=== PATIENT | female | born 1945 | race Caucasian/White ===

== ENCOUNTER → 2017-06-18 | Outpatient (CLI) | payer MEDICARE, OTHER | LOC: RAD 09:31 | PROVIDERS: ATTEND Internal Medicine | DX: Z12.31 Encounter for screening mammogram for malignant neoplasm of breast (principal) | CPT/HCPCS: 77067 ==

== ENCOUNTER 2017-07-09 05:33 | Outpatient (CLI) | payer MEDICARE, OTHER ==
[~2017-07-09] VITALS: Ht 160 cm; Wt 136.1 kg
[2017-07-09] MEDS ORDERED: LYSI100014 PO (12:04)
[2017-07-09] MEDS ORDERED: ASPI-586 PO (12:04)
[2017-07-09] MEDS ORDERED: ATEN100T PO (12:04)
[2017-07-09] MEDS ORDERED: HYDR25TA4 PO (12:04)
[2017-07-09] MEDS ORDERED: CYAN250014 PO (12:04)
== END 2017-07-09 12:11 ==
LOC: PREOP 05:33
PROVIDERS: ATTEND Internal Medicine
DX: Z01.818 Encounter for other preprocedural examination (principal); Z12.11 Encounter for screening for malignant neoplasm of colon; Z86.010 Personal history of colon polyps

== ENCOUNTER 2017-07-16 07:50 | Day surgery (SDC) | payer MEDICARE, OTHER ==
--- NOTE | 2017-07-14 08:07 | HISTORY AND PHYSICAL ---
DICTATING PHYSICIAN: Dr. Green DATE OF ADMISSION: 07/16/2017 Mrs. Green is a 71-year-old white female referred by Dr. Marshall for a screening colonoscopy. She states that she last underwent colonoscopy [address] Espinal and had one polyp at that time. She is deemed to be of higher than average risk as her mother was diagnosed with colon cancer at the age of 68. She succumbed to the natural causes at the age of 96. She denies any bright red blood per rectum or melena. She has had no abdominal pain or bowel habit change. PAST MEDICAL HISTORY: Significant for hypertension with no history of coronary artery disease. MEDICATIONS: On admission prescription include: 1. Atenolol 100 mg daily. 2. Hydrochlorothiazide 25 mg daily. 3. Baby aspirin daily. 4. She takes probiotic daily. 5. 1000 mcg of B12. 6. 1000 mg of D3. 7. 1000 mg of l-lysine. 8. She takes a turmeric based medication for knee pain. She has a history of obesity. Patellofemoral arthritis. PAST SURGICAL HISTORY: 1. She had tonsillectomy and adenoidectomy age of 7. 2. She had parathyroidectomy a little over 5 years ago. 3. Past history of meniscal tear repair in the distant past. 4. Distant history of cholecystectomy. SOCIAL HISTORY: She is retired with no past smoking history and rare alcohol intake. PHYSICAL EXAMINATION: Reveals a pleasant white female, who weighs 305 pounds. Her blood pressure initially 160/80 but at the end of the interview was down to 148/84. HEENT EXAMINATION: Unremarkable. Pharynx reveals no evidence for erythema or exudate. She is a Mallampati class II oropharyngeal configuration. NECK: Revealed no JVD, adenopathy or bruits. CHEST: Clear. CV: Reveals regular rate and rhythm without murmur, S3 or S4. ABDOMEN: Obese, soft, nontender without mass, organomegaly or tenderness. EXTREMITIES: Reveal no cyanosis, clubbing, or edema. ASSESSMENT: The patient was set-up for surveillance colonoscopy on 07/16. Prep instructions were given and questions were answered. With review of her electronic medical record and evaluation, 35 minutes of care time was spent by myself with another 15 minutes of staff time. I thank you for the referral was pleasant lady. Sincerely, Dimitri Green Job ID: [id number] Dictated Date: 06/16/2017 21:05:00 Parts Professional Date: 06/17/2017 09:47:35/nehemias
[~2017-07-16] VITALS: Ht 160 cm; Wt 136.1 kg
[~2017-07-16 07:50] MED LIST: ASPI-586 PO; ATEN100T PO; CYAN250014 PO; HYDR25TA4 PO; LYSI100014 PO
--- NOTE | 2017-07-16 07:57 | Pre-Op Note & Conscious Sedat ---
Pre-Operative Progress Note H&P Reviewed The H&P was reviewed, patient examined and no changes noted. Date H&P Reviewed: Jul 16, 2017 Time H&P Reviewed: 07:56 Conscious Sedation Pre-Proced ASA Class: 2 Airway Mallampati Classification: (huslia appropriate class) I. II. III, IV Lungs Heart ASA score ASA 1: a normal healthy patient ASA 2: a patient with a mild systemic disease (mid diabetes, controlled hypertension, obesity ASA 3: a patient with a severe systemic disease that limits activity (angina , COPD, prior Myocardial infarction) ASA 4: a patient with an incapacitating disease that is a constant threat to life (CHF, renal failure) ASA 5: a moribund patient not expected to survive 24 hrs. (ruptured aneurysm) ASA 6: a declared brain patient whose organs are being harvested. For emergent operations, add the letter E after the classification Grade 2 Sedation Plan: Analgesia, Amnesia, Plan communicated to team members, Discussed options with patient/fam, Discussed risks with patient/fam Note The patient is an appropriate candidate to undergo the planned procedure, sedation, and anesthesia. The patient immediately re-assessed prior to indication. LISA BRYAN MD Jul 16, 2017 07:57
[2017-07-16] MEDS ORDERED: 1/2 NS IV SOLUTION 1,000 ML IV STA (07:58)
--- OUTSIDE RECORDS SUMMARY | 2017-07-16 07:59 | XMS REPORT | Clinical Summary ---
Author Author User, [employer] Organization Nicole Marshall DO, FACP Address Unknown Phone Allergies, Adverse Reactions, Alerts Allergy Name Reaction Description Start Date Severity Status Provider SULFA Critical Active Nicole Marshall Conditions or Problems Problem Name Problem Code Onset Date Status Entry Date Provider Comment Standard Description Annotate TINEA CRURIS 110.3 Resolved Nicole Marshall Dermatophytosis of groin and perianal area HYPERGLYCEMIA, MILD 790.6 Active Nicole Marshall Other abnormal blood chemistry OSTEOARTHRITIS 715.90 Active Nicole Marshall Osteoarthrosis, unspecified whether generalized or localized, involving unspecified site DERMATITIS 692.9 Resolved Nicole Marshall Contact dermatitis and other eczema, unspecified cause ANEMIA NOS 285.9 Active Nicole Marshall Anemia, unspecified HYPERTRIGLYCERIDEMIA 272.1 Active Nicole Marshall Pure hyperglyceridemia HYPERCHOLESTEROLEMIA 272.0 Active Nicole Marshall Pure hypercholesterolemia VITAMIN B12 DEFICIENCY 266.2 Active Nicole Marshall Other B-complex deficiencies HYPERTENSION 401.1 Active Nicole Marshall Benign essential hypertension WELL WOMAN V70.0 Resolved Nicole Marshall Routine general medical examination at a health care facility VACCINE AGAINST STREPTOCOCCUS PNEUMONIAE V03.82 Resolved Nicole Marshall Need for prophylactic vaccination against Streptococcus pneumoniae [pneumococcus] POLYARTHRALGIA 719.49 Resolved Nicole Marshall Pain in joint involving multiple sites UNSPECIFIED INFLAMMATORY POLYARTHROPATHY 714.9 Resolved Nicole Marshall Unspecified inflammatory polyarthropathy LIVER FUNCTION TESTS, ABNORMAL 794.8 Resolved Nicole Marshall Nonspecific abnormal results of function study of liver Medication List Medication Instructions Start Date Stop Date Generic Name NDC Status Provider Patient Instruction ACIDOPHILUS PROBIOTIC FORMULA TABS 1 po daily LACTOBACILLUS 47511860983 Active Nicole Marshall VITAMIN B-12 1000 MCG TABS 1 PO daily CYANOCOBALAMIN 78259002148 Active Nicole Marshall MULTIVITAMINS TABS 1 PO QD MULTIPLE VITAMIN Active Nicole Marshall STRESS 500 B-COMPLEX TABS 1 PO Daily B [id number] ACID 91248488602 No Longer Active Nicole Marshall B COMPLETE TABS 1 PO daily B [id number] 32442677567 No Longer Active Nicole Marshall CALCIUM 600/VITAMIN D 600-400 MG-UNIT TABS 1 PO daily CALCIUM CARBONATE-VITAMIN D 02232827481 No Longer Active Nicole Marshall ZOSTAVAX 72933 UNT/0.65ML SOLR 1 injection once to prevent Shingles ZOSTER VACCINE LIVE 26223497380 No Longer Active Nicole Marshall NYSTATIN POWD Apply to affected areas BID NYSTATIN 64070083169 No Longer Active Nicole Marshall RA TURMERIC 500 MG CAPS 1 po daily TURMERIC 31263585802 Active Nicole Marshall DIFLUCAN 150 MG TAB 1 PO QD for 7 days FLUCONAZOLE 39987654920 No Longer Active Nicole Marshall MULTIVITAMINS TABS 1 PO QD MULTIPLE VITAMIN 16069171849 No Longer Active Nicole Marshall LOTRISONE 0.05-1 % CREAM apply BID as directed for 7 days CLOTRIMAZOLE-BETAMETHASONE 72795352250 No Longer Active Nicole Marshall ALEVE 220 MG TAB 1 PO BID prn NAPROXEN SODIUM 61341925502 Active Nicole Marshall LYSINE HCL 1000 MG TABS 1 PO daily LYSINE HCL 70993298177 Active Nicole Marshall ADULT ASPIRIN EC LOW STRENGTH 81 MG TBEC 1 PO daily ASPIRIN 00769005087 Active Nicole Marshall HYDROCHLOROTHIAZIDE 25 MG TABS 1 PO daily HYDROCHLOROTHIAZIDE 65700395417 Active Nicole Marshall ATENOLOL 100 MG TABS 1 PO daily ATENOLOL 39057187088 Active Nicole Marshall Immunizations Vaccine Administration Date Value Standard Description Influenza vaccine given Done influenza virus vaccine, unspecified formulation pneumococcal immunization administered done pneumococcal polysaccharide vaccine, 23 valent Influenza vaccine given Done influenza virus vaccine, unspecified formulation Influenza vaccine given Done influenza virus vaccine, unspecified formulation Influenza vaccine given Done influenza virus vaccine, unspecified formulation Vital Signs Date Name Value Unit Range Description blood pressure, diastolic - 8462-4 80 mm[Hg] BP muñoz blood pressure, systolic - 8480-6 138 mm[Hg] BP sys pulse rate E&M - 8867-4 68 /min Heart rate respiratory rate E&M - 9279-1 14 /min Resp rate temperature E&M 98.6 [degF] Body temperature weight E&M - 3141-9 283 [lb_av] Weight Measured blood pressure, diastolic - 8462-4 72 mm[Hg] BP muñoz blood pressure, systolic - 8480-6 124 mm[Hg] BP sys pulse rate E&M - 8867-4 76 /min Heart rate respiratory rate E&M - 9279-1 14 /min Resp rate weight E&M - 3141-9 283 [lb_av] Weight Measured Diagnostic Results Date Name Value Unit Range Description Clinical Lists Update: CBC,CMP,FLP,TSH - Chemistry Estimated Glomerular Filtration Rate (calc) 86 mL/min/1.73m2 albumin, serum 3.7 g/dL alkaline phosphatase, serum 68 U/L urea nitrogen, blood 24 mg/dL calcium, serum 8.9 mg/dL chloride, serum 105 mmol/L cholesterol, serum 202 mg/dL carbon dioxide, venous blood 30.0 mmol/L creatinine, serum 0.7 mg/dL HDL cholesterol, serum 44.0 mg/dL thyroid stimulating hormone, serum 1.97 u[iU]/mL LDL cholesterol, serum 135 mg/dL potassium, serum 4.1 mmol/L protein, total, serum 5.7 g/dL aspartate aminotransferase (SGOT), serum 11 U/L alanine aminotransferase (SGPT), serum 12 U/L bilirubin, serum, total 0.6 mg/dL triglyceride, serum, fasting 115 mg/dL sodium, serum 137 mmol/L anion gap, serum 6 cholesterol/HDL ratio, serum, percent 4.6 glucose, plasma fasting 99 mg/dL Clinical Lists Update: CBC,CMP,FLP,TSH - Hematology erythrocyte (RBC) count 4.64 10*6/mm3 hematocrit, blood 41.7 % hemoglobin, blood 13.7 g/dL red blood cell distribution width 13.3 % mean corpuscular volume, RBC 90 fL leukocyte count, blood 5.3 10*3/mm3 platelet count 211 10*3/mm3 Clinical Lists Update: CMP,FLP - Chemistry HDL cholesterol, serum 46.0 mg/dL Estimated Glomerular Filtration Rate (calc) 79 mL/min/1.73m2 potassium, serum 4.1 mmol/L LDL cholesterol, serum 138 mg/dL alkaline phosphatase, serum 67 U/L anion gap, serum 12 glucose, plasma fasting 116 mg/dL sodium, serum 140 mmol/L protein, total, serum 6.1 g/dL creatinine, serum 0.8 mg/dL albumin, serum 3.9 g/dL carbon dioxide, venous blood 29.0 mmol/L urea nitrogen, blood 23 mg/dL aspartate aminotransferase (SGOT), serum 13 U/L cholesterol, serum 203 mg/dL alanine aminotransferase (SGPT), serum 19 U/L calcium, serum 9.1 mg/dL bilirubin, serum, total 0.7 mg/dL cholesterol/HDL ratio, serum, percent 4.4 triglyceride, serum, fasting 96 mg/dL chloride, serum 103 mmol/L Clinical Lists Update: LFT,HgA1c - Chemistry protein, total, serum 6.0 g/dL bilirubin, serum, total 0.6 mg/dL aspartate aminotransferase (SGOT), serum 19 U/L alanine aminotransferase (SGPT), serum 31 U/L bilirubin, serum, direct 0.1 mg/dL albumin, serum 3.9 g/dL alkaline phosphatase, serum 62 U/L hemoglobin A1C, blood, as % of total hemoglobin 5.3 % Encounters Code Encounter Date Provider Facility CPT-01732 Ofc Vst, Est Level III 12:40:27 CDT Nicole Marshall DO, FACP CPT-43355 Ofc Vst, Est Level IV 18:18:53 CDT Nicole Karina Marshall Nicole S Marshall, DO, FACP CPT-49717 Ofc Vst, Est Level III 16:24:39 CDT Nicole Salas Joanna, DO, FACP CPT-88257 Ofc Vst, Est Level III 13:17:55 CDT Nicole Salas Joanna, DO, FACP CPT-56055 Ofc Vst, Est Level IV 10:34:09 CDT Nicole Salas Joanna, DO, FACP CPT-75847 Ofc Vst, Est Level IV 10:31:09 [employer] Nicole Salas Joanna, DO, FACP CPT-66458 Ofc Vst, Est Level IV 10:00:02 [employer] Nicole Salas Joanna, DO, FACP CPT-23518 Ofc Vst, Est Level IV 10:17:53 CDT Nicole Salas Joanna, DO, FACP CPT-16169 Ofc Vst, Est Level IV 14:33:21 [employer] Nicole Salas Joanna, DO, FACP CPT-17197 Ofc Vst, New Level IV 15:37:18 [employer] Nicole Salas Joanna, DO, FACP Procedures Code Procedure Name Date Entry Date Standard Description CPT-G0439 Medicare Annual Wellness Visit 20:06:27 [employer] CPT-G8443 E-Prescribing Medication Sent 13:47:38 [employer] CPT-G0438 Medicare Annual Wellness Visit Initial 13:47:38 [employer] CPT-G8443 E-Prescribing Medication Sent 16:24:39 CDT CPT-G8445 E-Prescribing Not sent due to no medication given 13:17: 55 CDT CPT-G8445 E-Prescribing Not sent due to no medication given 12:52: 29 [employer] CPT-78466 Injection, Pneumovax 12:52:29 [employer] CPT-56882 Handling of specimen from office to lab 10:35:54 CDT CPT-59083 Preventive, Est, (40-64) 10:35:54 CDT
[2017-07-16 08:00] VITALS: BP 157/89
[2017-07-16] MEDS ORDERED: MIDAZOLAM 2 MG/2 ML (VERSED) VIAL IVP PRN (08:00)
[2017-07-16] MEDS ORDERED: LIDOCAINE JELLY 2% (XYLOCAINE) 5 ML TUBE MM PRN (08:00)
--- OUTSIDE RECORDS SUMMARY | 2017-07-16 08:00 | XMS REPORT | Continuity of Care Document ---
Author Author [facility] Organization [facility] Address Unknown Phone Unavailable Allergies Active Description Code Type Severity Reaction Onset Reported/Identified Relationship to Patient Clinical Status Yes Sulfa (Sulfonamide Antibiotics) [id number] Drug Allergy Unknown A CHILD 07/09/2017 Medications Problems Date Dx Coded Attending Type Code Diagnosis Diagnosed By 06/28/2015 MICHAEL NAVARRO DO Ot V76.12 07/18/2015 MICHAEL NAVARRO DO Ot V76.12 06/16/2016 Ot V76.12 OTH SCREEN MAMMO-MALIGN NEOPLASM OF ERIC 06/16/2016 Ot V76.12 OTH SCREEN MAMMO-MALIGN NEOPLASM OF ERIC 06/16/2016 MICHAEL NAVARRO DO Ot V76.12 OTH SCREEN MAMMO-MALIGN NEOPLASM OF ERIC 06/16/2016 MICHAEL NAVARRO DO Ot V76.12 OTH SCREEN MAMMO-MALIGN NEOPLASM OF ERIC 06/16/2016 MICHAEL NAVARRO DO Ot V76.12 OTH SCREEN MAMMO-MALIGN NEOPLASM OF ERIC 06/16/2016 MICHAEL NAVARRO DO Ot Z12.31 ENCNTR SCREEN MAMMOGRAM FOR MALIGNANT NE 06/17/2016 MICHAEL NAVARRO DO Ot Z12.31 ENCNTR SCREEN MAMMOGRAM FOR MALIGNANT NE 07/10/2016 MICHAEL NAVARRO DO Ot Z12.31 ENCNTR SCREEN MAMMOGRAM FOR MALIGNANT NE 06/17/2017 MICHAEL NAVARRO DO Ot Z12.31 ENCNTR SCREEN MAMMOGRAM FOR MALIGNANT NE 06/17/2017 Ot V76.12 OTH SCREEN MAMMO-MALIGN NEOPLASM OF ERIC 06/17/2017 MICHAEL NAVARRO DO Ot V76.12 OTH SCREEN MAMMO-MALIGN NEOPLASM OF ERIC 06/17/2017 MICHAEL NAVARRO DO Ot V76.12 OTH SCREEN MAMMO-MALIGN NEOPLASM OF ERIC 06/17/2017 MICHAEL NAVARRO DO Ot V76.12 OTH SCREEN MAMMO-MALIGN NEOPLASM OF ERIC 06/17/2017 NAVARRO DO, MICHAEL Ot Z12.31 ENCNTR SCREEN MAMMOGRAM FOR MALIGNANT NE 06/17/2017 NAVARRO DO, MICHAEL Ot Z12.31 ENCNTR SCREEN MAMMOGRAM FOR MALIGNANT NE 06/18/2017 Ot V76.12 OTH SCREEN MAMMO-MALIGN NEOPLASM OF ERIC 06/18/2017 NAVARRO DO, MICHAEL Ot V76.12 OTH SCREEN MAMMO-MALIGN NEOPLASM OF ERIC 06/18/2017 NAVARRO DO, MICHAEL Ot V76.12 OTH SCREEN MAMMO-MALIGN NEOPLASM OF ERIC 06/18/2017 NAVARRO DO, MICHAEL Ot V76.12 OTH SCREEN MAMMO-MALIGN NEOPLASM OF ERIC 06/18/2017 NAVARRO DO, MICHAEL Ot Z12.31 ENCNTR SCREEN MAMMOGRAM FOR MALIGNANT NE 06/18/2017 NAVARRO DO, MICHAEL Ot Z12.31 ENCNTR SCREEN MAMMOGRAM FOR MALIGNANT NE 07/12/2017 NAVARRO DO MICHAEL Ot Z12.31 ENCNTR SCREEN MAMMOGRAM FOR MALIGNANT NE Procedures Results Encounters ACCT No. Visit Date/Time Discharge Status Pt. Type Provider Facility Loc./Unit Complaint [id number] 07/09/2017 05:33:00 2016 12:11:00 DIS Outpatient IRVIN LUONG, LISA Villalpando [facility] PREOP SCREENING, HISTORY OF COLON POLYPS [id number] 06/18/2017 09:31:00 2016 23:59:59 CLS Outpatient NAVARRO DO MICHAEL [facility] RAD SCREENING Z12.31 [id number] 06/16/2016 08:20:00 2015 23:59:59 CLS Outpatient NAVARRO DO MICHAEL [facility] RAD SCREENING [id number] 06/27/2015 08:56:00 2014 23:59:59 CLS Outpatient NAVARRO DO MICHAEL [facility] RAD SCREENING [id number] 06/25/2014 09:48:00 2013 23:59:59 CLS Outpatient NAVARRO DO MICHAEL [facility] RAD SCREENING [id number] 06/22/2013 10:45:00 2012 23:59:59 CLS Outpatient NAVARRO DO, MICHAEL [facility] RAD SCREENING [id number] 07/16/2017 09:15:00 PEN Preadmit IRVIN LUONG, LISA Villalpando [facility] ENDO SCREENING, HISTORY OF COLON POLYPS [id number] 04/28/2012 08:37:00 Document Registration [id number] 04/23/2011 09:50:00 Document Registration [id number] 10/26/2015 18:08:59 10/26/2015 23: 59:59 CLS Outpatient Ally Duff
[2017-07-16] MEDS ORDERED: fentaNYL INJECTION 100 MCG/2 ML AMP ONE ×3 (08:52→09:19)
[2017-07-16] MEDS ORDERED: LIDOCAINE JELLY 2% (XYLOCAINE) 5 ML TUBE ONE ×2 (08:53→09:19)
[2017-07-16] MEDS ORDERED: MIDAZOLAM 2 MG/2 ML (VERSED) VIAL ONE ×4 (08:53→09:19)
[2017-07-16] MEDS: fentaNYL INJECTION 100 MCG/2 ML AMP IVP PRN ×2 (09:00→09:10)
[2017-07-16 09:50] VITALS: BP 138/67
[2017-07-16 10:20] VITALS: BP 142/68
--- NOTE | 2017-07-17 01:14 | OPERATIVE REPORT ---
DATE OF SERVICE: 07/16/2017 COLONOSCOPY SUMMARY INDICATION FOR THE PROCEDURE: Screening colonoscopy with a distant past history of colon polyps. The patient was placed in the left lateral decubitus position. Prior to undergoing colonoscopy, digital rectal evaluation was performed. Anal sphincter tone was normal and the perianal reflexes intact. No abnormalities were noted on additional inspection of the distal rectal vault or anal canal. The colonoscope was then inserted into the rectum and under direct visualization advanced to the cecum. The cecum was identified by identification of the ileocecal valve and cecal strap. Photographic documentation was obtained. A careful inspection was made as the colonoscope was withdrawn. FINDINGS: There was no evidence for internal or external hemorrhoids and the rectum was unremarkable. Several small sigmoid diverticulum were present without evidence for diverticulitis. The descending colon was unremarkable. Present in the mid transverse colon was a diminutive 5 mm sessile adenomatous appearing polyp was biopsied and cauterized with no subsequent blood loss. Two adjacent polyps also adenomatous in appearance and 2 to 3 mm in size were noted in the proximal transverse colon. They were both biopsied and cauterized with no subsequent blood loss. The hepatic flexure, ascending colon, and cecum were unremarkable. ASSESSMENT: Three diminutive adenomatous-appearing polyps were removed, one from the mid transverse colon and two from the proximal transverse colon as noted above without subsequent blood loss. Mild diverticular disease confined to the sigmoid colon was present without evidence for diverticulitis. As long as there were no surprises on histopathology reports, would advocate for repeat surveillance colonoscopy in 5 years. I thank you for the referral of this pleasant lady. Job ID: [id number] DocumentID: [id number] Dictated Date: 07/16/2017 11:49:23 Assistant Office Manager Date: 07/16/2017 14:22:12 Dictated By: LISA BRYAN MD [facility]
== END 2017-07-16 10:45 | disposition home or self-care (01) ==
LOC: ENDO 07:50
PROVIDERS: ATTEND Internal Medicine
DX: Z12.11 Encounter for screening for malignant neoplasm of colon (principal); D12.3 Benign neoplasm of transverse colon; K57.30 Diverticulosis of large intestine without perforation or abscess without bleeding; Z86.010 Personal history of colon polyps; I10 Essential (primary) hypertension; Z79.899 Other long term (current) drug therapy

== ENCOUNTER → 2018-06-24 | Outpatient (CLI) | payer MEDICARE, OTHER ==
--- NOTE | 2018-06-24 13:04 | Diagnostic Imaging Report ---
INDICATION: Digital mammogram bilateral screening with 3-D tomosynthesis. This study was compared to the prior exam of 06/18/17, 06/16/16 and 06/27/15. At this time, there are no current complaints. The current study was also evaluated with a Computer Aided Detection (CAD) system. FINDINGS: There is a mild amount of fibroglandular tissue present in both breasts, similar to the prior exam. No primary or secondary sign of malignancy is noted. 3D tomographic images fail to show any sign of malignancy. IMPRESSION: There is no radiographic evidence for malignancy. ACR BI-RADS Category 1: Negative Result letter will be mailed to the patient. Note: At least 10% of breast cancer is not imaged by mammography. Dictated by: Dictated on workstation # [id number]
== END ==
LOC: RAD 07:35
PROVIDERS: ATTEND Internal Medicine
DX: Z12.31 Encounter for screening mammogram for malignant neoplasm of breast (principal)
CPT/HCPCS: 77067

== ENCOUNTER → 2019-06-26 | Outpatient (CLI) | payer MEDICARE, OTHER ==
--- NOTE | 2019-06-26 09:42 | Diagnostic Imaging Report ---
Indication: Routine screening. Comparison is made with prior mammogram 06/24/2018 and 06/18/2017. 2-D and 3-D bilateral screening mammography was performed with CAD. Scattered fibroglandular densities are identified bilaterally. Scattered benign-appearing calcifications are noted throughout both breasts. No spiculated masses or malignant-appearing microcalcifications are seen. Axillae are unremarkable. Impression: BI-RADS category 2 No mammographic features suspicious for malignancy are identified. Dictated by: Dictated on workstation # [id number]
== END ==
LOC: RAD 08:22
PROVIDERS: ATTEND Internal Medicine
DX: Z12.31 Encounter for screening mammogram for malignant neoplasm of breast (principal)
CPT/HCPCS: 77067

== ENCOUNTER → 2021-02-24 | Outpatient (CLI) | payer MEDICARE, OTHER ==
--- NOTE | 2021-02-25 10:38 | Diagnostic Imaging Report ---
EXAMINATION: Digital mammogram bilateral screening with CAD. INDICATION: Screening. COMPARISON: This study was compared to the prior exams of 06/26/2019, , and 06/18/2017. PERSONAL HISTORY: At this time, there are no current complaints. FINDINGS: There are scattered fibroglandular densities in both breasts which could obscure a lesion. Overall, there does not appear to have been any significant change when compared to the prior exam. No primary or secondary sign of malignancy is noted. IMPRESSION: There is no radiographic evidence for malignancy. ACR BI-RADS Category 1: Negative. Result letter will be mailed to the patient. Note: At least 10% of breast cancer is not imaged by mammography. Dictated by: Dictated on workstation # [id number]
== END ==
LOC: RAD 09:45
PROVIDERS: ATTEND Internal Medicine
DX: Z12.31 Encounter for screening mammogram for malignant neoplasm of breast (principal)
CPT/HCPCS: 77063; 77067

== ENCOUNTER → 2021-07-25 | Outpatient (CLI) | payer MEDICARE, OTHER | LOC: CARD 14:33 | PROVIDERS: ATTEND Internal Medicine | DX: I48.91 Unspecified atrial fibrillation (principal) | CPT/HCPCS: 93005 ==

== ENCOUNTER → 2022-02-25 | Outpatient (CLI) | payer MEDICARE, OTHER ==
--- NOTE | 2022-02-25 12:22 | Diagnostic Imaging Report ---
INDICATION: Routine screening. Comparison is made with prior mammogram 02/24/2021 and 06/26/2019. 2-D and 3-D bilateral screening mammography was performed with CAD. Scattered fibroglandular densities are identified bilaterally. Benign calcifications are scattered throughout both breasts. A nodular density in the upper retroareolar left breast appears stable. No spiculated mass or malignant-appearing microcalcifications are seen. Axillae are unremarkable. IMPRESSION: BI-RADS Category 2 No mammographic features suspicious for malignancy are identified. ACR BI-RADS Category 2: Benign findings. Result letter will be mailed to the patient. Note: At least 10% of breast cancer is not imaged by mammography. Dictated by: Dictated on workstation # [id number]
== END ==
LOC: RAD 10:15
PROVIDERS: ATTEND Internal Medicine
DX: Z12.31 Encounter for screening mammogram for malignant neoplasm of breast (principal)
CPT/HCPCS: 77063; 77067

== ENCOUNTER 2022-08-28 09:44 | Outpatient (CLI) | payer MEDICARE, OTHER ==
[~2022-08-28] VITALS: Ht 160 cm; Wt 136.8 kg
[2022-09-01] MEDS ORDERED: DOXY20TA5 PO (15:10)
[2022-09-01] MEDS ORDERED: BIMA2.5D4 OU (15:10)
== END 2022-09-01 15:19 | disposition home or self-care (01) ==
LOC: PREOP 09:44
PROVIDERS: ATTEND Internal Medicine
DX: Z01.818 Encounter for other preprocedural examination (principal)

== ENCOUNTER 2022-09-04 07:47 | Day surgery (SDC) | payer MEDICARE, OTHER ==
--- NOTE | 2022-08-28 19:32 | HISTORY AND PHYSICAL ---
DATE OF SERVICE: COLONOSCOPY HISTORY AND PHYSICAL DATE OF ADMISSION: HISTORY OF PRESENT ILLNESS: The patient is a 77-year-old white female referred by Dr. Marshall for surveillance colonoscopy. There is a positive family history of colon cancer and index case being her mother. She last underwent colonoscopy in 2017, at which time she had three subcentimeter tubular adenomas removed, one from the mid transverse colon and two from the proximal transverse colon.. She denies bright red blood per rectum, change in bowel habit, abdominal pain or melena. PAST MEDICAL HISTORY: Significant for hypertension with no known history of coronary artery disease or cardiac arrhythmia. She has a long history of overweight status. PAST SURGICAL HISTORY: She had tonsillectomy and adenoidectomy at the age of 7 with parathyroidectomy for hyperparathyroidism 10 years ago. She has had a meniscal tear repair in the distant past of one of her knees, and past history of cholecystectomy over 20 years ago. SOCIAL HISTORY: She is retired, with no past smoking history and rare small volume alcohol intake. REVIEW OF SYSTEMS: CONSTITUTIONAL: Denies night sweats, chills, fever. Through attempt, she has been slowly losing weight and is down over 70 pounds from our last office weight of 305 in 2017. PULMONARY: Denies cough, wheezing or shortness of breath. GASTROINTESTINAL: As noted in the HPI. CARDIOVASCULAR: Denies chest pain, orthopnea, PND or pedal edema. PHYSICAL EXAMINATION: GENERAL: Reveals a pleasant white female in no acute distress. VITAL SIGNS: Weight 228 pounds and blood pressure 126/84. HEENT: Unremarkable. Sclerae nonicteric. CHEST: Clear. CARDIOVASCULAR: Reveals regular rate and rhythm without murmur, S3 or S4. ABDOMEN: Soft, supple without mass, organomegaly or tenderness. EXTREMITIES: Reveal no cyanosis, clubbing or edema. ASSESSMENT AND PLAN: The patient is being set up for screening colonoscopy, deemed to be of higher than average risk as her mother was diagnosed with the colon cancer at the age of 68. Prep instructions were given and all medical record was reviewed and questions were answered. I thank you for the referral of this pleasant lady. Job ID: [id number] DocumentID: [id number] Dictated Date: 08/25/2022 16:44:58 Cook Specialty Date: 08/25/2022 16:57:38 Dictated By: LISA BRYAN MD
[~2022-09-04] VITALS: Ht 160 cm; Wt 136.8 kg
[~2022-09-04 07:47] MED LIST changes: +BIMA2.5D4 OU; +DOXY20TA5 PO
[2022-09-04] MEDS ORDERED: LACTATED RINGERS 1,000 ML IV STA (07:59)
[2022-09-04] MEDS ORDERED: LACTATED RINGERS 1,000 ML IV ONE (08:12)
[2022-09-04 08:15] VITALS: BP 176/76
--- NOTE | 2022-09-04 08:28 | Pre-Op Note & Conscious Sedat ---
Pre-Operative Progress Note Date H&P Reviewed: Sep 04, 2022 Time H&P Reviewed: 08:27 History & Physical: H&P Reviewed, Patient Examed, No changes noted Pre-Op Diagnosis: screening FH colon cancer Conscious Sedation Pre-Proced ASA Score 2 For ASA 3 and 4: Consider anesthesia and medical clearance. Also, for patients with a history of failed moderate sedation consider anesthesia. Airway Lungs Heart ASA score ASA 1: a normal healthy patient ASA 2: a patient with a mild systemic disease (mid diabetes, controlled hypertension, obesity ASA 3: a patient with a severe systemic disease that limits activity (angina, COPD, prior Myocardial infarction) ASA 4: a patient with an incapacitating disease that is a constant threat to life (CHF, renal failure) ASA 5: a moribund patient not expected to survive 24 hrs. (ruptured aneurysm) ASA 6: a declared brain- patient whose organs are being harvested. For emergent operations, add the letter E after the classification Mallampati Classification Grade 2 Sedation Plan Analgesia, Amnesia, Plan communicated to team members, Discussed options with patient/fam, Discussed risks with patient/fam The patient is an appropriate candidate to undergo the planned procedure, sedation, and anesthesia. The patient immediately re-assessed prior to indication. LISA BRYAN MD Sep 04, 2022 08:28
[2022-09-04] MEDS ORDERED: PROPOFOL INJECTION 50 ML IV ONE (09:03)
[2022-09-04] MEDS ORDERED: MIDAZOLAM 2 MG/2 ML (VERSED) VIAL ONE (09:03)
[2022-09-04 09:35] VITALS: BP 118/65
--- NOTE | 2022-09-04 09:38 | Progress Note-Post Operative ---
Post-Procedure Note Physician (s)/Package Checker (s) Physician LISA BRYAN MD Pre-Procedure Diagnosis Pre-Procedure Diagnosis: screening FH colon cancer Post-Procedure Diagnosis Post-operative diagnosis: 2 sessile polyps removed via hot forceps cecum and ascending colon. Moderate diverticular disease sigmoid colon no diverticulitis. LISA BRYAN MD Sep 04, 2022 09:38
[2022-09-04 09:40] VITALS: BP 157/78
[2022-09-04 09:45] VITALS: BP 144/67
[2022-09-04 10:10] VITALS: BP 145/68
--- NOTE | 2022-09-04 11:39 | Anesthesia-General Post-Op ---
MAC Patient Condition Mental Status/LOC: Same as Preop Cardiovascular: Satisfactory Nausea/Vomiting: Absent Respiratory: Satisfactory Pain: Controlled Complications: Absent Post Op Complications Complications None Follow Up Care/Instructions Patient Instructions None needed. Anesthesiology Discharge Order Discharge Order Patient is doing well, no complaints, stable vital signs, no apparent adverse anesthesia problems. No complications reported per nursing. ANDREI LAND CRNA Sep 04, 2022 11:39
--- NOTE | 2022-09-04 12:40 | OPERATIVE REPORT ---
DATE OF SERVICE: COLONOSCOPY SUMMARY INDICATION FOR THE PROCEDURE: Screening, family history for colon cancer. DESCRIPTION OF PROCEDURE: The patient was placed in the left lateral decubitus position. Prior to undergoing colonoscopy, digital rectal evaluation was performed. Anal sphincter tone was normal and the perianal reflexes intact. No abnormalities were noted on digital inspection of the anal canal or distal rectal vault. The colonoscope was then inserted into the rectum and under direct visualization advanced to the cecum. The cecum was identified by identification of ileocecal valve and cecal strap. Photographic documentation was obtained. Quality of the prep was good. FINDINGS: There was no evidence for internal or external hemorrhoids and the rectum was unremarkable. Moderate number of small to medium size sigmoid diverticulum were present without evidence for diverticulitis. No other sigmoid colonic abnormalities were appreciated. The descending colon, splenic flexure, transverse colon, and hepatic flexure were unremarkable. Present in the proximal ascending colon was a 4 mm sessile adenomatous appearing polyp, was biopsied and ablated and submitted for histopathology. Present in the cecum was a 2 to 3 mm sessile polyp. It was biopsied and ablated again with no blood loss. The remainder of the cecum and appendiceal orifice were unremarkable. ASSESSMENT: Two small sessile polyps were removed via hot forceps without blood loss today, one in the proximal ascending colon, the other in the cecum. Moderate diverticular disease confined to the sigmoid colon was present without evidence for diverticulitis. No other abnormalities were noted on today's procedure. As long as there are no surprises on histopathology report, we will be advocating repeat surveillance colonoscopy in five years considering family history. I thank you for the referral of this pleasant lady. Job ID: [id number] DocumentID: [id number] Dictated Date: 09/04/2022 09:35:55 Rippler Date: 09/04/2022 12:39:45 Dictated By: LISA BRYAN MD
== END 2022-09-04 10:20 | disposition home or self-care (01) ==
LOC: ENDO 07:47
PROVIDERS: ATTEND Internal Medicine
DX: Z12.11 Encounter for screening for malignant neoplasm of colon (principal); D12.2 Benign neoplasm of ascending colon; D12.0 Benign neoplasm of cecum; K57.30 Diverticulosis of large intestine without perforation or abscess without bleeding; Z80.0 Family history of malignant neoplasm of digestive organs; E66.01 Morbid (severe) obesity due to excess calories; Z68.43 Body mass index [BMI] 50.0-59.9, adult

== ENCOUNTER → 2023-02-26 | Outpatient (CLI) | payer MEDICARE, OTHER ==
--- NOTE | 2023-02-26 16:21 | Diagnostic Imaging Report ---
Indication: Routine screening. Comparison is made with prior mammograms from 02/25/2022 and 02/24/2021. 2-D and 3-D bilateral screening mammography was performed with CAD. Scattered fibroglandular densities are identified bilaterally. Scattered benign-appearing calcifications are again noted bilaterally. The nodular density in the retroareolar upper left breast appears stable. No spiculated mass or malignant-appearing microcalcifications are seen. Axillae are unremarkable. IMPRESSION: BI-RADS Category 2 No mammographic features suspicious for malignancy are identified. ACR BI-RADS Category 2: Benign findings. Result letter will be mailed to the patient. Note: At least 10% of breast cancer is not imaged by mammography. Dictated by: Dictated on workstation # [id number]
== END ==
LOC: RAD 09:34
PROVIDERS: ATTEND Internal Medicine
DX: Z12.31 Encounter for screening mammogram for malignant neoplasm of breast (principal)
CPT/HCPCS: 77063; 77067